=== PATIENT | male | born 1955 | race Caucasian/White ===

== ENCOUNTER → 2016-12-18 | Outpatient (CLI) | payer OTHER, MEDICARE ==
[~2016-12-18] MED LIST: ACYC-114 PO; AMLO10TA2 PO; AMLO1POW2 PO; FEBU40TA PO; FENO54TA17 PO; FLOVENT; GLYB5TAB3 PO; LANTUS; LEVO150T5 PO; LEVO200T5 PO; LEVO500T33 PO; LISI-170 PO; MAGN400T26 PO; METO25TA35 PO; METO50TA82 PO; NOVALOG; ONDA4TAB13 SL; OXYC-229 PO; PANT20TA3 PO; POLY17PO5 PO; PRED5TAB PO; SODI650T PO; SODIUM BICARB PO; TAMS-11 PO; TAMS0.4C2 PO; URSO300C27 PO; VALIUM PO; [UNRECOGNIZED DRUG - CODE] PO; [UNRECOGNIZED DRUG - REMARK] PO
== END | disposition home or self-care (01) ==
LOC: STAR 09:40
PROVIDERS: ATTEND Urology
DX: Z01.818 Encounter for other preprocedural examination (principal); N40.0 Benign prostatic hyperplasia without lower urinary tract symptoms
CPT/HCPCS: 93005

== ENCOUNTER 2016-12-28 13:01 | Inpatient (IN) | payer MEDICARE, OTHER ==
[~2016-12-28] VITALS: Ht 182.9 cm; Wt 116.0 kg
[2016-12-28] MEDS ORDERED: LACTATED RINGERS 1,000 ML IV SCH (13:28)
[2016-12-28] MEDS ORDERED: LIDOCAINE 1%, 2ML ONE (14:02)
[2016-12-28] MEDS ORDERED: CHOL100015 PO (14:09)
[2016-12-28] MEDS ORDERED: NITR100C6 PO (14:09)
[2016-12-28] MEDS ORDERED: DIAZ10TA PO (14:09)
[2016-12-28] MEDS ORDERED: FINA5TAB4 PO (14:09)
[2016-12-28] MEDS ORDERED: LIDOCAINE 1%, 2ML SQ PRN (14:30)
[2016-12-28 14:41] LABS: ASPARTATE AMINO TRANSFERASE 27 U/L (15-37); BLOOD UREA NITROGEN 57 mg/dL (7-18)
[2016-12-28] MEDS ORDERED: MIDAZOLAM 1 MG/ML, 2ML ONE (15:32)
[2016-12-28] MEDS ORDERED: FENTANYL PF 250 MCG/5ML ONE (15:32)
[2016-12-28] MEDS ORDERED: PROPOFOL 10 MG/ML, 20ML ONE (16:20)
[2016-12-28] MEDS ORDERED: GLYCOPYRROLATE 0.2MG/1ML ONE (16:20)
[2016-12-28] MEDS ORDERED: CEFAZOLIN 1,000 MG ONE (16:20)
[2016-12-28] MEDS ORDERED: ROCURONIUM 10 MG/ML ONE (16:20)
[2016-12-28] MEDS ORDERED: NEOSTIGMINE 1 MG/ML, 10ML ONE (16:20)
[2016-12-28] MEDS ORDERED: SUCCINYLCHOLINE 20 MG/ML, 10ML ONE (16:20)
[2016-12-28] MEDS ORDERED: LABETALOL 5MG/ML, 20ML IV PRN (17:00)
[2016-12-28] MEDS ORDERED: OXYcodone 5 MG/5 ML ORAL.SOL UDC PO PRN (17:00)
[2016-12-28] MEDS ORDERED: ONDANSETRON 2MG/ML, 2ML IVPush PRN (17:00)
[2016-12-28] MEDS ORDERED: ACETAMINOPHEN 325 MG TABLET PO PRN (17:00)
[2016-12-28] MEDS ORDERED: FENTANYL PF 100 MCG/2ML IV PRN (17:00)
[2016-12-28] MEDS ORDERED: HYDROmorphone 1 MG/ML, 1ML IV PRN (17:00)
[2016-12-28] MEDS ORDERED: SUGAMMADEX 200 MG/2 ML IVPush ONE (17:27)
[2016-12-28] MEDS ORDERED: FENTANYL PF 100 MCG/2ML ONE (17:37)
[2016-12-28] MEDS ORDERED: ACETAMINOPHEN 325 MG TABLET ONE (17:37)
[2016-12-28] MEDS ORDERED: ACETAMINOPHEN 650 MG/20.3 ML UDC ONE (17:37)
[2016-12-28] MEDS ORDERED: OXYcodone 5 MG/5 ML ORAL.SOL UDC ONE (17:38)
[2016-12-28] MEDS ORDERED: hydrALAzine 20 MG/ML, 1ML ONE (17:38)
[2016-12-28] MEDS: hydrALAzine 20 MG/ML, 1ML IV PRN ×2 (17:47→18:08)
[2016-12-28 19:27] VITALS: BP 158/80
[2016-12-28] MEDS ORDERED: OPIUM/BELLADONNA SUPP.RECT 16.2-60 MG PR PRN (19:30)
[2016-12-29] MEDS ORDERED: OXYcodone/APAP 5/325MG TABLET PO PRN
[2016-12-29 00:36] VITALS: BP 130/77
[2016-12-29] MEDS: D5%-0.45NACL+KCL 20MEQ 1,000 ML IV SCH ×2 (01:44→07:39)
[2016-12-29 04:08] VITALS: BP 138/72
[2016-12-29] MEDS: INSULIN REGULAR 100 UNITS/ML, 3ML VIAL SQ-INSULIN SCH ×2 (06:00)
[2016-12-29] MEDS ORDERED: LEVOTHYROXINE 200 MCG TABLET PO SCH (06:00)
[2016-12-29] MEDS ORDERED: METOPROLOL TARTRATE 50 MG TABLET PO SCH (06:00)
[2016-12-29 06:06] LABS: BLOOD UREA NITROGEN 49 mg/dL (7-18)
[2016-12-29] MEDS ORDERED: INSULIN ASPART 100 UNITS/ML, PEN SQ-INSULIN SCH ×2 (07:00→21:00)
[2016-12-29] MEDS ORDERED: INSULIN DETEMIR 100 UNITS/ML, PEN SQ-INSULIN SCH ×2 (07:30→21:00)
[2016-12-29 07:45] VITALS: BP 136/73
[2016-12-29] MEDS ORDERED: TAMSULOSIN 0.4 MG CAP.ER.24H PO SCH ×2 (09:00→21:00)
[2016-12-29] MEDS ORDERED: AMLODIPINE 5 MG TABLET PO SCH ×2 (09:00→21:00)
[2016-12-29] MEDS ORDERED: FEBUXOSTAT 40 MG TABLET PO SCH (09:00)
[2016-12-29] MEDS ORDERED: FINASTERIDE 5 MG TABLET PO SCH (09:00)
[2016-12-29] MEDS ORDERED: SODIUM BICARBONATE 650 MG TABLET PO SCH (09:00)
== END 2016-12-29 09:32 | disposition home or self-care (01) | DRG 713 ==
LOC: OUT 13:01 → 4NOR 18:45 → OUT 19:10 → 4NOR 19:11 → DCLOUNGE 12-29 09:10
PROVIDERS: ADMIT Urology; ATTEND Urology
PROC: 0VB08ZZ Excision of Prostate, Via Natural or Artificial Opening Endoscopic (ICD-10-PCS; principal; 2016-12-28 16:00)
DX: N40.1 Benign prostatic hyperplasia with lower urinary tract symptoms (principal); N17.0 Acute kidney failure with tubular necrosis; R33.8 Other retention of urine; I10 Essential (primary) hypertension; N32.89 Other specified disorders of bladder
CPT/HCPCS: 36415; 80048; 80053; 85014; 85018; 87077; 87086; 87186; J0690; J2250; J2704; J2710; J3010; J3490; J0330; J0360; J3480; J7120